=== PATIENT | female | born 1955 | race Caucasian/White ===

== ENCOUNTER 2022-06-23 07:00 | Outpatient (CLI) | payer MEDICARE ==
--- NOTE | 2022-06-23 13:18 | XRAY Report ---
PROCEDURE: Chest 2 View X-Ray INDICATIONS: CHRONIC COUGH TECHNIQUE: 2 views of the chest were acquired. COMPARISON: None. FINDINGS: Surgical changes and devices: None. Lungs and pleura: No pleural effusions or pneumothorax. Lungs are clear. Mediastinum: The aorta is prominent and tortuous. The cardiac contours are within normal limits. Bones and chest wall: No suspicious bony abnormalities. S-shaped scoliotic curvature is incidentall y noted. Age-appropriate degenerative changes are seen. Soft tissues appear unremarkable. IMPRESSION: Clear lungs, without infiltrates. Reviewed by: Gabino Hdz MD on 06/23/2022 12:17 PM [facility] Approved by: Gabino Hdz MD on 06/23/2022 12:17 PM [facility] Station ID: [id number]
== END 2022-06-23 23:59 | disposition home or self-care (01) ==
LOC: DI.S 07:00
PROVIDERS: ATTEND Physician Assistant
DX: R05.3 Chronic cough (principal)